=== PATIENT | male | born 1945 | race Caucasian/White ===

== ENCOUNTER 2018-02-06 10:06 | Emergency (ER) | payer MEDICARE, SELFPAY ==
[2018-02-06 10:07] VITALS: BP 182/92; PULSE 59; RESP 17; TEMP 36.7; O2SAT 96; BMI 29.0
--- NOTE | 2018-02-06 10:23 | RAD_ITS ---
STUDY: X-RAY - LUMBAR SPINE REASON FOR EXAM: Male, 72 years old. Low back pain. TECHNIQUE: 3 view(s) of the lumbar spine were obtained. COMPARISON: None FINDINGS: There is straightening of the normal lumbar lordosis. There is a mild dextroscoliosis of the lumbar spine. There is a normal alignment of the vertebrae. There is multilevel endplate spondylosis of the lumbar vertebrae. There is multi-level degenerative disc disease with multi-level disc space narrowing. There is evidence of a 7.1 cm x 0.5 cm lytic lesion in the superior aspect of the left iliac bone with sclerosis of facets inferior aspect. This may be related to prior surgical intervention and trauma. Clinical correlation is recommended. RAD/Lumbar Spine 2 or 3 Views IMPRESSION: Degenerative changes of the spine, as detailed above. Mild dextroscoliosis. Deformity of the left iliac bone as described most likely similar to prior trauma. Electronically Signed: Sanjiv Meraz MD at 10:55 EDT Tel [phone], Service support ,
--- NOTE | 2018-02-06 11:17 | ED.VISSUMM ---
- ER Visit Summary Date of Service: 02/06/18 Chief Complaint: Back pain History of Present Illness: The patient is a 72 M with no primary care physician. He reports that he has lower back pain began 2-3 weeks ago. Reports it is a constant aching pain that is sharp at times. It is worsened by twisting or rolling over in bed. States is relieved by standing up straight, and heat. He denies any radiation to his legs. No numbness or weakness in his legs. No problems with his bowels or his bladder. No groin numbness. No recent trauma. No fall, MVA, or change in activity. She has no red flags. He denies any fever, chills, abdominal pain, chest pain, IV drug abuse. Physical Examination: Vitals: Stable. Afebrile. General: A&O x 3. NAD. Cardiovascular exam: Regular rate and rhythm, no murmur, rub or gallop. Respiratory exam: Clear to auscultation bilaterally. No wheezes or stridor. Abdominal exam: Soft, nontender, nondistended, normal bowel sounds. No peritoneal signs. Back: Lumbar spine is nontender. Negative straight leg bilaterally. 5/5 DF, PF, EHL bilaterally. Normal sensation to light touch throughout. Extremity: No clubbing, cyanosis, or edema. Test Results: X-ray shows degenerative changes, but no fracture. Emergency Department Course and Treatment: Patient refused pain medications and states that he does not take any medication for pain. Treatment Plan: I suggested the patient that he needs to establish primary care physician for further evaluation of this and for his overall health. He will be discharged instructions follow-up Dr. Méndez as soon as possible. He refused pain medications for home. Disposition: To home in improved and stable condition. Impression: 1. Back pain. This note was generated with [employer] dictation software. It may contain incorrect words, spelling, and punctuation that were not noted in review of the chart prior to signing ED Disposition - Plan for ED Patient: Chief Complaint: Back Instructions: ED Neck Back Pain General Referrals: Elvin Méndez MD [STAFF PHYSICIAN] - As soon as possible
[2018-02-06 12:12] VITALS: BP 182/105; PULSE 61; RESP 17; O2SAT 97
== END 2018-02-06 12:14 | disposition home or self-care (01) ==
PROVIDERS: Emergency Provider Emergency Medicine
DX: M54.9 Dorsalgia, unspecified (principal); I25.10 Atherosclerotic heart disease of native coronary artery without angina pectoris; I10 Essential (primary) hypertension; Z79.82 Long term (current) use of aspirin; Z79.899 Other long term (current) drug therapy; Z87.442 Personal history of urinary calculi
CPT/HCPCS: 72100; 99282

== ENCOUNTER → 2018-03-04 10:29 | Outpatient (CLI) | payer MEDICARE, SELFPAY ==
[2018-03-04 11:38] LABS: AST(SGOT) 42 U/L (15-37); Alanine Aminotransfer ALT/SGPT 68 U/L (16-61); Alkaline Phosphatase 102 U/L (45-117); Bilirubin, Direct 0.15 mg/dL (0.00-0.30); Cholesterol 168 mg/dL (200); Globulin 3.4 g/dL (2.2-4.2); High Density Lipoprotein 31 mg/dL; Protein, Total 7.4 g/dL (6.4-8.2); Triglycerides 164 mg/dL; Very Low Density Lipoprotein 33 mg/dL (5-40)
== END ==
PROVIDERS: Visit Provider Internal Medicine Cardiovascular Disease
DX: E78.5 Hyperlipidemia, unspecified (principal); Z79.899 Other long term (current) drug therapy
CPT/HCPCS: 36415; 80061; 80076

== ENCOUNTER 2018-07-23 09:17 | Inpatient (IN) | payer MEDICARE, SELFPAY ==
[2018-07-11 15:02] VITALS: BP 175/89; PULSE 68; RESP 16; TEMP 37.2; O2SAT 95; BMI 29.3
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
[2018-07-11 16:24] LABS: Hemoglobin A1c 6.8 % (4.2-6.3)
--- NOTE | 2018-07-18 11:04 | CASEMGMT ---
Call placed to patient to discuss discharge needs after upcoming surgery. Patient's plan is to return home, has Eliza to help, per patient Eliza used to be a nurse and is a good friend. Patient does not think that outpatient therapy is set up yet, thinks that he was told therapy would be about 10 days after surgery. Eliza is going to assist with transportation to/from therapy appointments. There is a ramp into the house but patient states he stays in the camper most of the time. There are 1-2 steps into the camper. There is a walk-in shower and a shower seat. No toilet riser. Patient has a walker, but not a very good one, would like a fold up walker. Encouraged patient to check walker prior to coming in for surgery and also to see if therapy is set up. Patient stated he wasn't sure what time to arrive on surgery day, explained that surgery scheduling would call the day before with an arrival time and if he didn't hear from scheduling by ~4pm, to call [facility] and ask for the program scheduler.
[2018-07-23] VITALS (11 sets, daily range): BP systolic 124–180; BP diastolic 63–93; PULSE 54–94; RESP 16–18; TEMP 36.1–36.6; O2SAT 94–99; BMI 29.3
[2018-07-23 10:01] LABS: Bedside Glucose 142 mg/dL (70-110)
[2018-07-23] MEDS: Acetaminophen 500 MG Tablet 1000 MG PO ×3 (10:02→21:00)
[2018-07-23] MEDS: oxyCODONE HCl Cr 10 MG Tablet PO (10:02)
[2018-07-23] MEDS: Celecoxib 200 MG Capsule 400 MG PO (10:03)
[2018-07-23] MEDS: Cefazolin 2 GM in 0.9% Normal Saline 100 ML IV (10:22)
--- NOTE | 2018-07-23 10:39 | PCM.OPRPT ---
Report of Operation Date of Procedure: 07/23/18 Pre-Operative Diagnosis: Left knee primary osteoarthritis. Left knee medial tibial plateau nonunion Post-Operative Diagnosis: Left knee primary osteoarthritis. Left knee medial tibial plateau nonunion Surgery/Procedure Performed:: Left total knee replacement Description of Surgical Findings:: Stable knee with good patella tracking. Due to the nonunion there was a medial tibial defect required a 10 mm medial augment mental retardation aide: Grace Castaneda Anesthesiologist: Landon Small Special Medications: 2 g Ancef, 1 g TXA at incision, 1 g TXA closure, 10 mg Decadron, joint cocktail (5 mg Duramorph, 30 mL of 0.5% Ropivicaine, 1000 units of epinephrine, 30 mg of Toradol) Specimen's removed: Bony cuts Estimated Blood Loss (mL): 75 Fluids Replaced: 1900 milliliters crystalloid Description of Procedure: Implants used: 1. Alison size 5 triathlon posterior stabilized left distal femoral component 2. Alison size 4 universal tibial baseplate, 10 mm medial augment, 100 mm x 12 mm stem cemented 3. Alison X3 9 mm pS polyethylene 4. De Graff X3 35 mm asymmetric patella Brief history operative indications: 73-year-old M with history of left knee osteoarthritis with radiographic findings with loss of joint space, osteophyte formation and subchondral sclerosis and medial tibial plateau nonunion. Failed conservative measures as mentioned in the H&P. Discussion of total knee arthroplasty as well as risk and benefits were discussed the patient including but not limited to blood loss, DVTs, PEs, neurovascular damage, general risk of anesthesia including loss of life, and stiffness or instability were discussed with patient. Patient demonstrated understanding and was able to sign informed consent. Procedure: On the date of procedure patient's left lower extremity was marked in the preoperative area. The patient was then taken back to the operating room where the patient was placed on the table in the supine position. All bony prominences were identified a well-padded. Anesthesia assumed control of the C-spine and airway and remained controlled throughout the remainder of the procedure. A tourniquet was placed on the left upper thigh and the leg was prepped in a sterile fashion. The surgeon then scrubbed at this time .Upon reentering the room left lower extremity was draped in a standard orthopedic fashion. A timeout was then called and everyone agreed upon the side, the site, the procedure to be performed, patient's identity and antibiotics given. Esmarch bandage was used to exsanguinate the extremity and the tourniquet was placed up to 250 mmHg with the knee in flexion. A midline skin incision was made and sharp dissection was taken down through skin subcutaneous tissue and fat. The standard medial parapatellar incision was made and the patella was subluxed laterally. The standard deep MCL release was done and the fat pad was resected. Next our attention was directed to the femur. Navigation pins were placed, navigation was registered. The distal femoral cutting block was pinned into place and 10 mm of distal femur resection was completed. The distal femoral cut was verified with navigation. The knee was then placed in deep flexion in the standard Alvos Therapeutic sizing guide was used to place the femoral component in 3? external rotation based on the posterior condyles. A size 5 4-in-1 cutting block was selected and pinned into place. The anterior cut was then made and checked for notching. The subsequent anterior chamfer cuts, posterior condylar cuts and posterior chamfer cuts were made while ensuring the MCL and LCL were protected. Our attention was then turned to the tibia where initial exposure of the tibia was difficult secondary to posterior medial scar tissue. Careful attention was paid to the posterior medial knee and the posterior medial tibia and posterior tibia were carefully released in order to maintain the integrity of the MCL. The extra medullary tibial cutting guide was placed making a perpendicular cut to the chemical axis. 2 Millimeters were removed from the low side which was medially. After this we made a 5 mm augmented cut. Once this was complete we noted that we had not got to the depth of the bony defect. We made an additional 5 mm for a total of 10 mm augment cut. After this was performed visualization was still difficult secondary to all the skin excessive scar tissue in the posterior medial knee. Posterior medial bone was carefully debrided in order to maintain a good soft tissue sleeve and the integrity of the MCL. A size 4 tibial base plate was selected. the knee was flexed to 90 degrees and the soft tissues and posterior osteophytes were removed from the joint. 40 cc of the periarticular injection was injected into the posterior medial corner of the joint. The appropriate trials were then placed on the femur and tibia. A trial polyethylene was trialed to ensure proper balancing and stability of the knee. Patella tracking, was then verified and corrected appropriately as needed. The appropriate tibial internal rotation was then marked with a bovie. Our attention was then directed to the patella. The patella was everted and a flat resection was made. The lug holes were drilled and the patella trial was placed. Patellar tracking was checked and deemed appropriate. Once we were happy lug holes were drilled for the femur and trial components were removed. the tibia was subluxed and pinned into place and the keel was punched and the canal was reamed for the 12 mm x 100 mm tibial stem. Final components were verified and opened, and cement was mixed in a vacuum. Alvos Therapeutic Simplex cement was used. The wound was copiously irrigated with normal saline. When the cement was ready the components were cemented into place starting with the tibia, femur and finally the patella. The trial poly component was placed and the knee was placed in full extension. All excess cement was removed in the process. Once the cement had cured the tracking, alignment and balance were verified and a size 9 mm polyethylene component was placed. Once the final components were placed the wound was copiously irrigated with normal saline solution and the periarticular injection was given. The wound was closed in a layer mcneil fashion using #1 vicryl interrupted sutures for the arthrotomy, 2-0 interrupted Vicryl suture for the subcuticular layer and socorro for final skin closure. A sterile compressive dressing was then placed. The patient was then awakened from anesthesia, transferred to the [facility] and transferred to the PACU for recovery. Post op plan DVT ppx: ASA 81mg, thigh high compression stockings Follow up: in office in 2 weeks for wound check PT: to start POD #0 at hospital, outpatient PT should be arranged. Modifier 22: Due to this patient's previous medial tibial plateau nonunion this case did take [place]. [place] [address] is 50 minutes today's tourniquet time was 72 minutes making it 40% longer than a average total knee replacement. This should be considered request for a modifier 22. The parts of the case took longer were exposed and the tibia and prepping the tibia for the tibial defect from the previous nonunion also debriding posterior medial bone after making the tibial cut. All this took excessive time in order to appropriately protect and preserve medial collateral ligament ensure an appropriate outcome for the patient. Grafts/Implants Used: Alvos Therapeutic triathlon posterior stabilized total knee - Complications None - Admit VTE Documentation VTE Present on Admission: No VTE Mechan Device Prophylaxis: SCD's, Thigh High MAHENDRA Hose VTE Pharm Prophylaxis ordered?: Yes
[2018-07-23] MEDS: Lactated Ringers 1,000 ML 999 ML IV (13:04)
[2018-07-23] MEDS: Scopolamine 1mg/72hr Patch 1 PATCH TD (13:04)
[2018-07-23 13:11] LABS: Bedside Glucose 193 mg/dL (70-110)
[2018-07-23] MEDS: Lactated Ringers 1,000 ML 125 ML IV ×2 (13:40→19:10)
[2018-07-23] MEDS: Glucerna Shake 120 ML LIQUID PO ×2 (14:30→16:29)
[2018-07-23] MEDS: Insulin Lispro 100 UNIT/ML INSULN.PEN SC ×2 (16:28→21:00)
[2018-07-23 16:30] LABS: Bedside Glucose 257 mg/dL (70-110)
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
[2018-07-23] MEDS: Cefazolin 1 GM/50 ML BAG IV (18:14)
[2018-07-23] MEDS: Meloxicam 7.5 MG Tablet PO (21:00)
[2018-07-23] MEDS: Senna/Docusate Sodium 1 Tablet 2 TABLET PO (21:00)
[2018-07-23] MEDS: Aspirin 81 MG TAB.CHEW PO (21:00)
[2018-07-23 22:40] LABS: Bedside Glucose 271 mg/dL (70-110)
[2018-07-24 02:45] VITALS: BP 125/61; PULSE 63; RESP 16; TEMP 36.7; O2SAT 97
[2018-07-24] MEDS: Cefazolin 1 GM/50 ML BAG IV (02:45)
[2018-07-24] MEDS: Acetaminophen 500 MG Tablet 1000 MG PO (05:18)
[2018-07-24 06:21] LABS: Hematocrit 36.1 % (40-54); Hemoglobin 12.4 g/dl (13.0-16.5); Mean Corp Hgb Conc 34.3 g/gl (32-36); Mean Corpuscular Hgb 31.5 pg (27.0-32.0); Mean Corpuscular Volume 91.6 fL (80-94); Mean Platelet Vol. 11.5 fl (6.2-12.0); Platelet Count 148 K/mm3 (150-450); RBC Distribution Width CV 13.1 % (11.6-14.6); RBC Distribution Width SD 43.8 fl (35.1-43.9); Red Blood Count 3.94 M/mm3 (4.6-6.2); White Blood Count 12.5 K/mm3 (4.4-11.0)
[2018-07-24 06:29] LABS: Scan Indicated on CBC? Y/N NO
[2018-07-24 06:33] LABS: Anion Gap 11 (5-15); BUN 18 mg/dL (7-18); BUN/Creat Ratio 15.9 RATIO (10-20); Calcium,Total 8.4 mg/dL (8.5-10.1); Chloride 107 mmol/L (98-107); Creatinine, Serum 1.13 mg/dL (0.70-1.30); EST Glomerular Filtration Rate 68 mL/min (>60); Est Glom Filt Rate - Afr Amer 82 mL/min (>60); Estimated Creatinine Clearance 55.25 ml/min; Glucose 211 mg/dL (74-106); Potassium 4.1 mmol/L (3.5-5.1); Sodium Level 142 mmol/L (136-145)
--- NOTE | 2018-07-24 06:36 | PCM.PN.ORT ---
Subjective: Patient is doing well. Reports minimal pain. Has been taking Tylenol for pain medications. No chest pain or shortness of breath. No calf pain. No acute events overnight. Anticipates discharge today. Objective: Postop radiographs reveal stable well aligned left total knee replacement. - Physical Exam General: Alert, Oriented x3, Cooperative Extremities: - - Left lower extremity: Dressing is clean dry and intact Sensations intact to light touch saphenous, sural, superficial peroneal, deep peroneal, and tibial distributions Motors intact EHL, DF, PF calves are soft and supple Vital Signs Temp Pulse Resp BP Pulse Ox 98.1 F 63 16 125/61 H 97 07/24/18 02:45 07/24/18 02:45 07/24/18 02:45 07/24/18 02:45 07/24/18 02:45 Oxygen Delivery Method Room Air Weight: 187 lb 9.814 oz Body Mass Index (BMI) 29.3 Finger Stick Blood Glucose 193 Intake and Output for Last 24 Hours 07/22/18 07/23/18 07/24/18 23:59 23:59 23:59 Intake Total 5167 / 5167 433 / 433 Output Total 500 / 500 400 / 400 Balance 4667 / 4667 33 / 33 Laboratory Tests Past 24 Hrs 07/24/18 07/24/18 05:40 05:40 WBC 12.5 H RBC 3.94 L Hgb 12.4 L Hct 36.1 L MCV 91.6 MCH 31.5 MCHC 34.3 RDW 13.1 RDW Differential 43.8 Plt Count 148 L MPV 11.5 Sodium 142 Potassium 4.1 Chloride 107 Carbon Dioxide 24.0 Anion Gap 11 BUN 18 Creatinine 1.13 Estim Creat Clear Calc 55.25 Est GFR (MDRD) Af Amer 82 Est GFR (MDRD) Non-Af 68 BUN/Creatinine Ratio 15.9 Glucose 211 H Calcium 8.4 L POC Glucose 07/23/18 07/23/18 07/23/18 20:56 16:16 13:05 POC Glucose 271 H 257 H 193 H 07/23/18 09:48 POC Glucose 142 H Medical Necessity - Tobacco Use Smoking Status: Former smoker Assessment/Plan All Active Problems (Last Updated 11/01/17 @ 11:18 by Evelyn Betancur) S/P wrist surgery (Resolved) History of left heart catheterization (Acute) Postop day 1 left total knee replacement 1. DVT prophylaxis: 81 mg aspirin twice daily for 4 weeks 2. Pain control: Patient currently doing well on Mobic and Tylenol. Discussed discharge with narcotics. Patient will have narcotics a safety net as block wears off. Instructed to use narcotics only as needed. 3. Physical therapy: Weightbearing as tolerated activity as tolerated, range of motion as tolerated. 4. Medical management: Appreciate medical management on this patient. Patient appears medically stable. 5. Disposition: We will plan for discharge today to home with outpatient physical therapy. MARIELLA [facility] Office:
--- NOTE | 2018-07-24 06:39 | PCM.DC.TKR ---
Discharge Diet: No Restrictions Discharge Activity: May Not Drive May shower in (days): 0 May resume sexual activity in: 1-2 weeks Ice area for (Minutes): 20 - every hour while awake. Weight Bearing Status: Weight bearing as tolerated Elevate: Operative Extremity Additional Activity Instructions:: Wear elastic stockings for 2 weeks after your surgery. Call your doctor if your incision/area has: Continuous Slow Oozing, Sudden Increased Bleeding, Increased Pain/ Swelling, Increased Redness, Foul Smelling Discharge Call your doctor if you observe: Fever of 101 or Higher, Coldness, Increased Pain, Numbness or Tingling, Change in Color, Calf discomfort, Uncontrolled pain Remove Dressing in (days):: 4 - 07/28/2018, If incision is clean dry and intact may leave the wound open to air and continue showering. If there is continued drainage continue daily dry dressing changes and keep incision clean dry and intact until there is no drainage. Allergies/Adverse Reactions: Allergies No Known Allergies Allergy (Verified 07/11/18 15:02) Medications to take at Discharge aspirin 81 mg tablet,delayed release 81 mg PO QDAY 11/01/17 lisinopril 5 mg tablet 5 mg PO QDAY tab 03/04/18 Metformin HCl 500 mg PO DAILY 07/11/18 Metoprolol Succinate [Toprol Xl] 12.5 mg PO QDAY 07/11/18 Primary Care Physician: Care Physician,No Primary [Primary Care Provider] - Test Results: Test results from this visit will be discussed in further detail at your follow-up appointment, if applicable. Please Follow Up With: Eb Otto PA-C When: 2 weeks, as noted in dc sheet
[2018-07-24] MEDS: Insulin Lispro 100 UNIT/ML INSULN.PEN SC ×2 (06:51→11:26)
[2018-07-24 06:56] LABS: Bedside Glucose 209 mg/dL (70-110)
[2018-07-24 07:30] VITALS: BP 158/71; PULSE 65; RESP 18; TEMP 36.9; O2SAT 96
[2018-07-24] MEDS: Famotidine 20 MG Tablet PO (07:36)
[2018-07-24] MEDS: Meloxicam 7.5 MG Tablet PO (07:36)
[2018-07-24] MEDS: Aspirin 81 MG TAB.CHEW PO (07:36)
[2018-07-24 07:37] VITALS: PULSE 65
[2018-07-24] MEDS: Metoprolol(XL)Succ 25 MG Tablet 12.5 MG PO (07:37)
--- NOTE | 2018-07-24 10:40 | PCM.PN.HOSP ---
Subjective: Patient was seen and examined. Feels well. Denied any pain at the time of being seen. Denies any fever or chills or chest pain or dizziness. He is been discharged by the orthopedic team. Objective: Physical exam: General: Alert, Oriented x3, Cooperative, No apparent distress HEENT: Atraumatic, EOMI, Normocephalic Oral: Moist Mucosa Neck: Supple, No JVD Lungs: Clear to auscultation, Normal air movement, No rhonchi, No wheeze, No rales Cardiovascular: Regular rate, Regular Rhythm, Normal S1, Normal S2, No murmurs Abdomen: Soft, Non Tender, Non-Distended, No Hepato-splenomegaly Extremities: - - Dressing on left knee CDI Neurological: Neuro grossly intact, Sensory exam intact to light touch and pain Psych/Mental Status: Normal Affect, Appropriate Vitals/I&O's: Vital Signs Temp Pulse Resp BP Pulse Ox 98.5 F 65 18 158/71 H 96 07/24/18 07:30 07/24/18 07:37 07/24/18 07:30 07/24/18 07:30 07/24/18 07:30 Oxygen Delivery Method Room Air Weight: 85.1 kg Body Mass Index (BMI) 29.3 Finger Stick Blood Glucose 193 Intake and Output for Last 24 Hours 07/22/18 07/23/18 07/24/18 23:59 23:59 23:59 Intake Total 5167 / 5167 433 / 433 Output Total 500 / 500 400 / 400 Balance 4667 / 4667 33 / 33 Laboratory Results 07/23/18 13:05: POC Glucose 193 H 07/23/18 16:16: POC Glucose 257 H 07/23/18 20:56: POC Glucose 271 H 07/24/18 05:40: WBC 12.5 H, RBC 3.94 L, Hgb 12.4 L, Hct 36.1 L, MCV 91.6, MCH 31.5, MCHC 34.3, RDW 13.1, RDW Differential 43.8, Plt Count 148 L, MPV 11.5 07/24/18 05:40: Sodium 142, Potassium 4.1, Chloride 107, Carbon Dioxide 24.0, Anion Gap 11, BUN 18, Creatinine 1.13, Estim Creat Clear Calc 55.25, Est GFR (MDRD) Af Amer 82, Est GFR (MDRD) Non-Af 68, BUN/Creatinine Ratio 15.9, Glucose 211 H, Calcium 8.4 L 07/24/18 06:48: POC Glucose 209 H Current Medications Acetaminophen (Tylenol) 1,000 mg PO Q8 [facility] Last Admin: 07/24/18 05:18 Dose: 1,000 mg Aspirin (Aspirin, Baby) 81 mg PO BID [facility] Last Admin: 07/24/18 07:36 Dose: 81 mg Famotidine (Pepcid) 20 mg PO DAILY [facility] Last Admin: 07/24/18 07:36 Dose: 20 mg Lactated Ringer's () 1,000 mls @ 125 mls/hr IV .Q8H [facility] Last Admin: 07/24/18 02:45 Dose: Not Given Insulin Human Lispro (Humalog Kwikpen (Bkc)) 1 - 7 unit SC ACHS [facility] PRN Reason: Protocol Last Admin: 07/24/18 06:51 Dose: 2 units Ketorolac Tromethamine (Toradol) 15 mg IV Q6H PRN PRN PRN Reason: MILD-MOD PAIN (1-5/10) Meloxicam (Mobic) 7.5 mg PO BID [facility] Last Admin: 07/24/18 07:36 Dose: 7.5 mg Metoprolol Succinate (Toprol Xl (Beta Jaz)) 12.5 mg PO DAILY [facility] Last Admin: 07/24/18 07:37 Dose: 12.5 mg Morphine Sulfate () 2 - 4 mg IV Q2H PRN PRN PRN Reason: SEVERE PAIN (6-10/10) Nutritional Formula (Lactose Free) (Glucerna Shake) 120 ml PO TIDCM [facility] Last Admin: 07/24/18 07:35 Dose: Not Given Ondansetron HCl (Zofran) 4 mg IV Q8H PRN PRN PRN Reason: NAUSEA Oxycodone HCl (Oxyir) 5 - 10 mg PO Q4H PRN PRN PRN Reason: MOD-SEVERE PAIN (4-10/10) Promethazine HCl (Phenergan) 12.5 mg IM Q6H PRN PRN; Protocol PRN Reason: NAUSEA/VOMITING Senna/Docusate Sodium (Senokot-S, Fatoumata-Colace) 2 tablet PO BID [facility] Last Admin: 07/24/18 07:36 Dose: Not Given Sodium Chloride () 5 - 30 ml IV UD PRN PRN Reason: SALINE FLUSH Medical Necessity - Tobacco Use Smoking Status: Former smoker Assessment/Plan All Active Problems (Last Updated 11/01/17 @ 11:18 by Evelyn Betancur) S/P wrist surgery (Resolved) History of left heart catheterization (Acute) 1. POD #1, s/p left TKA, further pain and wound management by orthopedic team 2. Hypertension, initially uncontrolled, repeat blood pressure shows better controlled, continue on home regimen lisinopril and metoprolol 3. Type II DM, HgbA1c 6.8, blood sugars fairly uncontrolled, on metformin 4. CAD, not on aspirin 5. DVT prophylaxis -per orthopedics team Code Visit Inpatient E&M: 23056 Subs Hosp L2
--- NOTE | 2018-07-24 11:15 | CASEMGMT ---
MELISSA THIBODEAUX Face to Face with patient for initial transition planning/care coordination assessment. RN CM introduced self and role at [facility]. Patient sitting in chair, alert and oriented. Patient willing to participate in assessment and is able to answer all questions appropriately. Care providers, pharmacy, and demographics verified. Patient wishes to discharge home and is setup at [facility] for outpatient therapy. Patient states he has no further needs or concerns at this time. CM to follow for discharge planning needs that may arise. Disposition Plan: Patient to discharge home with outpatient therapy, family support, and follow-up plans in place. Melanie BAXTER, RN, CM
[2018-07-24 11:35] LABS: Bedside Glucose 179 mg/dL (70-110)
[2018-07-24 13:30] VITALS: BP 139/63; PULSE 81; RESP 18; TEMP 36.9; O2SAT 98
[2018-07-24 14:29] VITALS: BP 139/63; PULSE 81; RESP 18; TEMP 36.9; O2SAT 98
== END 2018-07-24 14:21 | disposition home or self-care (01) | DRG 470 ==
LOC: ACINP 09:18 → MS3 11:21
PROVIDERS: Anesthesiology; Admitting Provider Specialist; Visit Provider Internal Medicine
PROC: 0SRD0J9 Replacement of Left Knee Joint with Synthetic Substitute, Cemented, Open Approach (ICD-10-PCS; CPT 27447; principal; 2018-07-23 10:15)
DX: M17.12 Unilateral primary osteoarthritis, left knee (principal); S82.142A Displaced bicondylar fracture of left tibia, initial encounter for closed fracture; V29.9XXA Motorcycle rider (driver) (passenger) injured in unspecified traffic accident, initial encounter; I25.10 Atherosclerotic heart disease of native coronary artery without angina pectoris; I10 Essential (primary) hypertension; I25.2 Old myocardial infarction; Z95.5 Presence of coronary angioplasty implant and graft; Z79.84 Long term (current) use of oral hypoglycemic drugs; E11.9 Type 2 diabetes mellitus without complications
CPT/HCPCS: 36415; 73560; 80048; 82962; 83036; 85027; 87077; 87081; 93005; 97110; 97162; 97166; 97530; 97802; 99251; 99406; C1776; J7120; G0463

== ENCOUNTER 2020-07-05 19:47 | Emergency (ER) | payer MEDICARE, SELFPAY ==
[2020-07-05 19:48] VITALS: BP 168/96; PULSE 79; RESP 17; TEMP 36.3; O2SAT 96; BMI 28.7
[2020-07-05 21:00] LABS: Absolute Lymphocyte Count 1.65 X10^3/uL (0.83-4.51); Absolute Neutrophil Count 5.1 X10^3/uL (2.0-7.7); Basophil# 0.06 X10^3/uL; Basophil% 0.7 % (0-1); Eosinophil# 0.27 X10^3/uL; Eosinophils% 3.3 % (0-5); Hematocrit 39.4 % (40-54); Hemoglobin 13.7 g/dL (13.0-16.5); Lymphocyte # 1.65 X10^3/ul (4.0); Lymphocyte % 20.4 % (19-41); Mean Corp Hgb Conc 34.8 g/dL (32-36); Mean Corpuscular Hgb 31.9 pg (27.0-32.0); Mean Corpuscular Volume 91.8 fL (80-94); Mean Platelet Vol. 10.6 fl (6.2-12.0); Monocyte# 0.93 X10^3/uL; Monocyte% 11.5 % (0-10); NRBC Flagged by Analyzer 0 % (0-5); Neutrophil # 5.13 X10^3/uL (2.7-7.7); Neutrophil % 63.6 % (47-70); Platelet Count 187 K/mm3 (150-450); RBC Distribution Width CV 12.3 % (11.6-14.6); RBC Distribution Width SD 41.7 fl (35.1-43.9); Red Blood Count 4.29 M/mm3 (4.6-6.2); White Blood Count 8.1 K/mm3 (4.4-11.0)
[2020-07-05] MEDS: Doxycycline 100 MG CAPSULE PO (21:00)
[2020-07-05 21:16] LABS: Prothrombin Time (Protime)PT. 12.8 SECONDS (11.7-14.9)
[2020-07-05 21:17] LABS: ALB/GLOB Ratio 1.1 RATIO (0.9-2.4); AST(SGOT) 21 U/L (15-37); Alanine Aminotransfer ALT/SGPT 40 U/L (16-61); Albumin, Serum 3.6 g/dL (3.2-5.0); Alkaline Phosphatase 88 U/L (45-117); Anion Gap 4 (5-15); BUN 14 mg/dL (7-18); BUN/Creat Ratio 10.9 RATIO (10-20); Chloride 108 mmol/L (98-107); Creatinine, Serum 1.29 mg/dL (0.70-1.30); EST Glomerular Filtration Rate 58 mL/min (>60); Est Glom Filt Rate - Afr Amer 70 mL/min (>60); Estimated Creatinine Clearance 46.97 ml/min; Globulin 3.4 g/dL (2.2-4.2); Glucose 261 mg/dL (74-106); Partial Thromboplast Time 27.3 Seconds (24.1-36.2); Potassium 3.9 mmol/L (3.5-5.1); Sodium Level 141 mmol/L (136-145)
--- NOTE | 2020-07-05 21:37 | ED.VISSUMM ---
- ER Visit Summary Date of Service: 07/05/20 Chief Complaint: Abscess History of Present Illness: The patient is a [address] Nolasco. He reports he has an abscess in the right inguinal region that began 3 to 4 days ago. He denies pain. He reports that it is sore. Denies any constitutional symptoms. No fever, chills, nausea, or vomiting. Physical Examination: Vitals: Stable. Afebrile. General: Well-nourished and well-developed. Head: Normocephalic atraumatic. Neck: Supple, no lymphadenopathy. No JVD. Nontender. Cardiovascular: Regular rate and rhythm. No murmurs. Respiratory: No respiratory distress. Clear to auscultation bilaterally. Abdominal: Soft, nontender, nondistended, normal bowel sounds. No guarding, rebound, or peritoneal signs. Back: Nontender. Extremities: Nontender, no edema. Skin: Right inguinal region there is a 2 cm indurated area with central fluctuance that is spontaneously draining. Neurologic: Alert and oriented ?3. Cranial nerves II through XII are intact. Normal strength and sensation. Psych: Normal affect. Test Results: CBC shows hematocrit of 39.4 monocytes 12. Chem-7 shows a chloride of 108 and glucose 261. Coags are normal. Emergency Department Course and Treatment: Patient had an I&D performed he tolerated this well. He was given doxycycline p.o. Treatment Plan: Patient be discharged on doxycycline instructed to follow-up with Dr. Tracy in 2 days for a wound check. Return to the emergency department for any worsening symptoms. Disposition: To home in improved and stable condition. Impression: 1. Abscess right inguinal region. 2. I&D. 3. Rlw-yvzqffl-bspfyefqc diabetes mellitus. Procedure Note: Abscess was cleansed with chlorhexidine soap. Anesthetized with 1% lidocaine without epinephrine. An incision was made with an 11 scalpel blade. A moderate amount of pus was drained. Curved hemostats were used to break up loculations. The wound was copiously irrigated with normal saline. It was loosely packed with iodoform gauze. The patient tolerated it well. This note was generated with [employer] dictation software. It may contain incorrect words, spelling, and punctuation that were not noted in review of the chart prior to signing ED Disposition - Plan for ED Patient: Disposition: Home or Assisted Living Instructions: ED Abscess Incision And Drainage Prescriptions: Doxycycline 100 mg PO BID #14 cap Prescription Printed Referrals: Katie Tracy MD [STAFF PHYSICIAN] - 2 Days for wound check
[2020-07-05 22:08] VITALS: BP 161/91; PULSE 70; RESP 16; O2SAT 96
== END 2020-07-05 22:09 | disposition home or self-care (01) ==
LOC: ED 20:17
PROVIDERS: Emergency Provider Emergency Medicine; PCP Internal Medicine
DX: L02.214 Cutaneous abscess of groin (principal); E11.9 Type 2 diabetes mellitus without complications; I25.10 Atherosclerotic heart disease of native coronary artery without angina pectoris; I10 Essential (primary) hypertension; Z79.84 Long term (current) use of oral hypoglycemic drugs; Z79.82 Long term (current) use of aspirin; Z79.899 Other long term (current) drug therapy
CPT/HCPCS: 10060; 80053; 85025; 85610; 85730; 99283

== ENCOUNTER 2020-07-16 11:14 | Emergency (ER) | payer MEDICARE, SELFPAY ==
[2020-07-16 11:16] VITALS: BP 147/67; PULSE 60; RESP 17; TEMP 36.3; O2SAT 98; BMI 29.4
--- NOTE | 2020-07-16 11:27 | RAD_ITS ---
STUDY: X-RAY - RIGHT FEMUR REASON FOR STUDY: Male, 75 years old. FALL, POSTERIOR BRUISING TECHNIQUE: 4 view(s) of the femur. COMPARISON: None. FINDINGS: Normal visualized femur. Normal visualized soft tissue structure. Vascular calcifications. RAD/Femur Min 2 Views IMPRESSION: Normal x-ray examination of the femur. Electronically Signed: Hieu Villatoro DO at 12:30 EDT Tel [phone], Service support ,
--- NOTE | 2020-07-16 11:29 | ED.DCSUM_ITS ---
- ER Visit Summary Date of Service: 07/16/20 Chief Complaint: Right posterior thigh pain History of Present Illness: The patient is a 75 M who presents with pain in the right posterior thigh. He was walking in the [place] 4 days ago when he fell directly onto this area. He now has pain with walking. He takes a baby aspirin a day but has not taken anything else for pain. He denies any hip or knee pain. Denies any other injuries. Physical Examination: Vital signs reviewed. Right leg exam reveals tenderness in the posterior proximal upper leg area. No buttock tenderness but he has no hip or knee tenderness. There is ecchymosis on the posterior thigh overlying the hamstring muscle area. Distal pulses are intact. No swelling. No tenderness along the deep venous system Test Results: X-rays of the right femur area are negative Emergency Department Course and Treatment: The patient appears to have a muscle tear of the hamstring causing ecchymosis. He has full range of motion. He is able to ambulate on his own. He does not want any pain medications for home. He will use ice for pain. He is going to call his doctor for follow-up. Treatment Plan: [] Disposition: Discharge Impression: Right hamstring muscle tear This note was generated with [employer] dictation software. It may contain incorrect words, spelling, and punctuation that were not noted in review of the chart prior to signing ED Disposition - Plan for ED Patient: Disposition: Home or Assisted Living Instructions: ED SOFT TISSUE CONTUSION Referrals: Anahi Nolasco MD [Primary Care Provider] -
[2020-07-16 12:47] VITALS: BP 146/71; PULSE 62; RESP 15; O2SAT 98
== END 2020-07-16 12:48 | disposition home or self-care (01) ==
PROVIDERS: Emergency Provider Emergency Medicine; PCP Internal Medicine
DX: S76.911A Strain of unspecified muscles, fascia and tendons at thigh level, right thigh, initial encounter (principal); W19.XXXA Unspecified fall, initial encounter; Y93.01 Activity, walking, marching and hiking
CPT/HCPCS: 73552; 99282

== ENCOUNTER 2020-12-17 15:40 | Emergency (ER) | payer MEDICARE, SELFPAY ==
[2020-12-17 15:42] VITALS: BP 167/83; PULSE 87; RESP 16; TEMP 36.9; O2SAT 96; BMI 29.2
[2020-12-17 15:45] VITALS: BP 167/83; PULSE 87; RESP 16; TEMP 36.9; O2SAT 96
--- NOTE | 2020-12-17 16:07 | US_ITS ---
STUDY: SCROTUM ULTRASOUND REASON FOR EXAM: Male, 75 years old. swelling and pain bilateral testicles. TECHNIQUE: Ultrasound evaluation of the scrotum was performed with color Doppler and static peña-scale imaging. COMPARISON: None. FINDINGS: RIGHT TESTICLE INTRATESTICULAR: There is a normal size of the right testicle. The right testicle measures 4.9 x 3.3 x 3.0 cm. There is a homogenous echotexture. There is normal arterial and normal venous vascularity. There is no demonstrated right testicular mass or cyst. EXTRATESTICULAR: The epididymis is normal in size. The epididymis head measures 1.7 cm. There is normal vascularity of the epididymis. There is a well-defined cystic structure within the epididymis, without internal echoes, consistent with an epididymal cyst. There is a small hydrocele. There is no demonstrated varicocele. There is no demonstrated extratesticular mass or cyst. LEFT TESTICLE INTRATESTICULAR: There is a normal size of the left testicle. The left testicle measures 4.3 x 3.2 x 2.5 cm. There is a homogenous echotexture. There is normal arterial and normal venous vascularity. There is no demonstrated left testicular mass or cyst. EXTRATESTICULAR: The epididymis is normal in size. The epididymis head measures 1.3 cm. There is normal vascularity of the epididymis. There is a well-defined cystic structure within the epididymis, without internal echoes, consistent with an epididymal cyst. There is no demonstrated hydrocele. There are prominent extratesticular veins consistent with a varicocele. There is no demonstrated extratesticular mass or cyst. There is diffuse scrotal wall thickening and edema. US/Testicular with Arterial Flow IMPRESSION: 1. Normal bilateral testicles. 2. Diffuse scrotal edema or cellulitis. 3. Left varicocele. 4. Small right hydrocele. 5. Subcentimeter epididymal cysts. Electronically Signed: Chidi Lorenzana MD ([place]oks) at 17:51 EST , Service support ,
--- NOTE | 2020-12-17 16:33 | ED.VIS.GEN ---
History of Present Illness Chief Complaint: Abscess Informant: Patient, Family Narrative: 75-year-old male presenting for evaluation of a small abscess on his right forearm as well as what he believes is an abscess of the posterior scrotum. He states that the one on his arm is actually feeling better. His scrotum has been painful for about 4 days. He denies any trauma. He is not had any systemic signs such as fever or chills. Denies dysuria. - Past Medical History (1) Atrial fibrillation Status: Chronic (2) Diabetes mellitus Status: Chronic (3) HLD (hyperlipidemia) Status: Chronic (4) HTN (hypertension) Status: Chronic Past Medical History - Allergies and Home Meds Allergies/Adverse Reactions: Allergies No Known Allergies Allergy (Verified 07/05/20 19:47) Primary Care Physician: Anahi Nolasco MD [Primary Care Provider] - Prior records reviewed: Yes Past Medical History: - - Reviewed in problem list Surgical History: noncontributory Lives: Spouse/ Significant Other Smoking Status: Former smoker Alcohol: None Drugs: None Review of Systems General: Denies: Chills, Fever, Sweats Eyes: Denies: Visual changes - bilaterally, Diplopia ENT: Denies: Rhinorrhea, Sore throat Cardiovascular: Denies: Chest pain, Palpitations Respiratory: Denies: Dyspnea, Cough, Dyspnea on exertion Genitourinary: Denies: Dysuria, Hematuria, Frequency Musculoskeletal: Denies: Back pain, Extremity Pain Skin: Reports: Abscess - Right forearm abscess, - - Scrotal rash and swelling Neurological: Denies: Headache, Weakness Psych: Denies: Depression, Anxiety Physical Exam Vital Signs/Narrative: Vital Signs Temp Pulse Resp BP Pulse Ox 12/17/20 15:45 98.4 F 87 16 167/83 H 96 12/17/20 15:42 98.4 F 87 16 167/83 H 96 General: Well nourished, No Acute Distress Head: Normocephalic, Atraumatic Eyes: Perrl, EOMI Cardiovascular: Regular rate, Regular rhythm : - - Erythema and redness to the scrotum there is a firm area on the posterior aspect near the perineum. There is no drainage. Extremities: Nontender, No edema Skin: - - 1.5 cm abscess on right posterior forearm. No surrounding erythema or induration.. Negative for: Cyanosis, Diaphoresis Neurological: Alert, Oriented x3, Cranial nerves II-XII grossly intact Psychological: Normal affect, Normal Mood Diagnostic/Tx/Re-eval Clinical Impression(s) from Imaging Studies Testicular Ultrasound 12/17/20 16:07 IMPRESSION: 1. Normal bilateral testicles. 2. Diffuse scrotal edema or cellulitis. 3. Left varicocele. 4. Small right hydrocele. 5. Subcentimeter epididymal cysts. Electronically Signed: Chidi Lorenzana MD (Brooks) at 17:51 EST , Service support , Abdomen/Pelvis CT 12/17/20 18:13 IMPRESSION: 1. Scrotal edema as seen on ultrasound earlier today. 2. No acute inflammatory process or bowel obstruction. 3. Bilateral inguinal and umbilical fat-containing hernias with right-sided urinary bladder extending to the right hernia sac mouth. 4. No hydronephrosis. Electronically Signed: Chidi Lorenzana MD (Brooks) at 19:13 EST , Service support , Laboratory Data 12/17/20 12/17/20 12/17/20 16:30 18:25 18:25 WBC 10.9 RBC 4.31 L Hgb 13.7 Hct 40.2 MCV 93.3 MCH 31.8 MCHC 34.1 RDW Std Deviation 43.1 RDW Coeff of Holley 12.4 Plt Count 192 MPV 11.0 Immature Gran % (Auto) 0.300 Neut % (Auto) 72.3 H Lymph % (Auto) 14.7 L Kinney % (Auto) 11.4 H Eos % (Auto) 0.8 Baso % (Auto) 0.5 Absolute Neuts (auto) 7.9 H Absolute Lymphs (auto) 1.60 Nucleated RBC % 0 Sodium 140 Potassium 4.1 Chloride 106 Carbon Dioxide 29.0 Anion Gap 5 BUN 21 H Creatinine 0.99 Estim Creat Clear Calc 61.20 Est GFR (MDRD) Af Amer 94 Est GFR (MDRD) Non-Af 78 BUN/Creatinine Ratio 21.1 H Glucose 139 H Calcium 9.3 POC Glucose 165 H - Medical Decision Making 75-year-old male presenting with concern for abscess on right forearm and scrotum. On his right arm he did have a small abscess which was incised and drained. See procedure note. On examination he does have some tenderness to posterior aspect of his scrotum and there is thickening but I do not feel any fluctuance. He initially had an ultrasound which showed no abscess and showed that the skin was inflamed. Patient also had CT of the abdomen pelvis to make sure that it was not a Jaun's gangrene of the knee his diabetes and this is not evident. Patient's lab work showed no leukocytosis normal renal function. Given this I think the patient is okay to be discharged home on oral antibiotics. He was counseled on keeping the area clean and dry and monitoring for signs of worsening. If he gets worse he is to return to the ER. He will be started on clindamycin with first dose in the ED. Impression: 1. Abscess right forearm 2. Scrotal cellulitis Procedures Procedure(s): Right forearm abscess was cleaned with chlorhexidine. Wound was anesthetized with 2 cc of lidocaine without epinephrine. Good anesthesia was achieved. Wound was incised with 11 blade and expression of a small amount of purulent discharge. Wound was deloculated. Wound was cleaned with sterile saline. Dressing was applied. Tolerated procedure well. ED Disposition - Plan for ED Patient: Disposition: Home or Assisted Living Instructions: ED Abscess Incision And Drainage, ED Cellulitis Prescriptions: Clindamycin [Cleocin] 450 mg PO TID #90 cap Transmission Status: Received by [facility]/pharmacy #[id number] Referrals: Anahi Nolasco MD [Primary Care Provider] -
[2020-12-17 16:35] LABS: Bedside Glucose 165 mg/dL (70-110)
[2020-12-17] MEDS: Lidocaine 2% (20 ml mdv) 20 ML Vial INFILT (16:49)
[2020-12-17 17:41] VITALS: BP 128/70; PULSE 77; RESP 17; O2SAT 98
--- NOTE | 2020-12-17 18:13 | CT_ITS ---
STUDY: CT ABDOMEN AND PELVIS WITH CONTRAST REASON FOR EXAM: Male, 75 years old. SCROTAL SWELLING,INFECTION X 2 DAYS,HX:DIABETES,HTN RADIATION DOSAGE (If Supplied By Facility): CTDIvol = ( 14.37 ) mGy, DLP = ( 970.26 ) mGycm TECHNIQUE: Transaxial images were obtained from the dome of the diaphragm to the symphysis pubis without oral contrast. IV 100mL Isovue-370 was administered. Sagittal and coronal images were reconstructed. Individualized dose optimization techniques were used for this CT. COMPARISON: Scrotal ultrasound from earlier today. FINDINGS: Mild atelectasis or fibrotic scarring right lung base. Coronary artery stents are noted. Subcentimeter hypodense cystic lesions of the left hepatic lobe. Benign, incidental finding; no specific imaging workup recommended according to current ACR guidelines. Normal gallbladder and extrahepatic biliary system. There are multiple benign calcified granulomata of the spleen. Normal pancreas. Normal bilateral adrenal glands. Normal right kidney. Normal left kidney. Normal visualized stomach. Normal small intestine. There are multiple colonic diverticula consistent with diverticulosis. There is non-visualization of the appendix. There is diffuse atherosclerotic calcification of the abdominal aorta, without a demonstrated aneurysm. There is atherosclerosis of the bilateral renal arteries with mild stenosis. Normal inferior vena cava. Normal retroperitoneum. No bladder wall thickening. There are right larger than left inguinal hernias containing fat at the anterior right side of the urinary bladder extending into the right hernia mouth (image 47 series 601). Small periumbilical fat containing hernia noted. There are diffuse degenerative changes of the visualized lumbar spine. There is soft tissue edema involving the scrotum, inferior more than superior but no obvious focal fluid collection. There are surgical clips in the left inguinal region. Deformity of the left side of the pelvis compatible with old, healed fractures, stable. CT/Abdomen/Pelvis W IV Cont ONLY IMPRESSION: 1. Scrotal edema as seen on ultrasound earlier today. 2. No acute inflammatory process or bowel obstruction. 3. Bilateral inguinal and umbilical fat-containing hernias with right-sided urinary bladder extending to the right hernia sac mouth. 4. No hydronephrosis. Electronically Signed: Chidi Lorenzana MD ([place]) at 19:13 EST , Service support ,
[2020-12-17 18:55] LABS: Absolute Neutrophil Count 7.9 X10^3/uL (2.0-7.7); Basophil# 0.05 X10^3/uL; Basophil% 0.5 % (0-1); Eosinophil# 0.09 X10^3/uL; Eosinophils% 0.8 % (0-5); Hematocrit 40.2 % (40-54); Hemoglobin 13.7 g/dL (13.0-16.5); Lymphocyte % 14.7 % (19-41); Mean Corp Hgb Conc 34.1 g/dL (32-36); Mean Corpuscular Hgb 31.8 pg (27.0-32.0); Mean Corpuscular Volume 93.3 fL (80-94); Monocyte# 1.24 X10^3/uL; Monocyte% 11.4 % (0-10); NRBC Flagged by Analyzer 0 % (0-5); Neutrophil # 7.91 X10^3/uL (2.7-7.7); Neutrophil % 72.3 % (47-70); Platelet Count 192 K/mm3 (150-450); RBC Distribution Width CV 12.4 % (11.6-14.6); RBC Distribution Width SD 43.1 fl (35.1-43.9); Red Blood Count 4.31 M/mm3 (4.6-6.2); White Blood Count 10.9 K/mm3 (4.4-11.0)
[2020-12-17 18:56] LABS: Anion Gap 5 (5-15); BUN 21 mg/dL (7-18); BUN/Creat Ratio 21.1 RATIO (10-20); Calcium,Total 9.3 mg/dL (8.5-10.1); Chloride 106 mmol/L (98-107); Creatinine, Serum 0.99 mg/dL (0.70-1.30); EST Glomerular Filtration Rate 78 mL/min (>60); Est Glom Filt Rate - Afr Amer 94 mL/min (>60); Glucose 139 mg/dL (74-106); Potassium 4.1 mmol/L (3.5-5.1); Sodium Level 140 mmol/L (136-145)
[2020-12-17] MEDS: Clindamycin HCl 150 MG Capsule 450 MG PO (20:34)
[2020-12-17 20:36] VITALS: BP 128/70; PULSE 78; RESP 16; O2SAT 98
== END 2020-12-17 20:37 | disposition home or self-care (01) ==
PROVIDERS: Emergency Provider Student in an Organized Health Care Education/Training Program; PCP Internal Medicine
DX: L02.413 Cutaneous abscess of right upper limb (principal); N49.2 Inflammatory disorders of scrotum; I48.20 Chronic atrial fibrillation, unspecified; E11.9 Type 2 diabetes mellitus without complications; I10 Essential (primary) hypertension; E78.5 Hyperlipidemia, unspecified; Z79.84 Long term (current) use of oral hypoglycemic drugs; Z79.82 Long term (current) use of aspirin; Z79.899 Other long term (current) drug therapy; Z87.891 Personal history of nicotine dependence
CPT/HCPCS: 10060; 74177; 76870; 80048; 82962; 85025; 93976; 99284; Q9967; A4216

== ENCOUNTER 2021-10-19 14:15 | Emergency (ER) | payer MEDICARE, SELFPAY ==
[2021-10-19 14:15] VITALS: BP 220/103; PULSE 62; RESP 16; TEMP 37; O2SAT 97; BMI 29.7
[2021-10-19 16:20] VITALS: BP 194/107
[2021-10-19 16:42] VITALS: BP 195/78
--- NOTE | 2021-10-19 17:04 | EDS_ITS ---
HPI History of Present Illness Chief Complaint: Cellulitis Detail of Chief Complaint: Right forearm injury with pain and swelling Informant: patient Onset/Context/Timing Onset: Days Context: Sudden Onset Timing: Continuous Current Severity: Mild Maximum Severity: Moderate Narrative Narrative: 76-year-old male was hunting in [place] fell and injured his right forearm. This occurred around [facility] but they could not talk him to coming into the hospital till now. He says had more pain and swelling the last several days. He is right-hand dominant. He denies any other injuries. Prior similar symptoms: No Recent Illness/Hospitalization: No PFSH PFSH Medical History Atherosclerosis of [place] coronary artery of [place] heart without angina pectoris Atrial fibrillation Diabetes mellitus History of left heart catheterization HLD (hyperlipidemia) HTN (hypertension) longterm use of drug Myocardial infarction Non-rheumatic tricuspid valve insufficiency Home Medications metformin 500 mg PO DAILY 07/11/18 [History Last Taken Unknown] metoprolol succinate [Toprol XL] 25 mg PO QDAY 07/11/18 [History Last Taken 07/23/18 07:00] acetaminophen 1,000 mg PO Q8 #90 tab 07/24/18 [Rx Last Taken Unknown] aspirin 81 mg PO BID 30 Days #60 tab.chew 07/24/18 [Rx Last Taken Unknown] lisinopril 10 mg PO QDAY 12/17/20 [History Last Taken Unknown] Allergy/AdvReac Type Severity Reaction Status Date / Time No Known Allergies Allergy Verified 10/19/21 14:19 Family History Father CVA (cerebral vascular accident) Mother Congestive heart failure Surgical History History of PTCA Hx of right coronary artery stent placement S/P wrist surgery Thoracotomy and thoracic aorta repair (~1979) Social History Smoking Status: Never smoker alcohol intake: former substance use type: does not use caffeine: Yes Type: coffee Number of servings: 2 what type of physical activity do you participate in: none seatbelt use: always do you feel safe at home: Yes ROS ROS ED ROS Narrative Denies recent illness. Review of Systems ROS Unobtainable: Denies due to encephalopathy Constitutional Constitutional ED: Denies fever(s) Eyes Eyes: Denies change in vision ENT ENT ED: Denies ear pain Cardiovascular Cardiovascular: Denies chest pain Respiratory/Chest Respiratory/Chest: Denies dyspnea Gastrointestinal Gastrointestinal: Denies abdominal pain, diarrhea, nausea or vomiting Genitourinary Genitourinary ED: Denies dysuria Musculoskeletal Musculoskeletal: Denies myalgias Integumentary Denies rash Neurologic Neurologic: Denies headache(s) Endocrine Endocrinology: Denies polyuria Allergic/Immunologic Allergic/Immunologic ED: Denies urticaria EXAM Physical Exam Narrative Exam Narrative: 76 male no acute distress vital signs stable afebrile. Blood pressure is elevated 195/78. HEENT exam atraumatic. Pupils round react light. No facial trauma. No scalp trauma. Neck nontender. Lungs clear to auscultation. Chest wall nontender. Heart regular rate and rhythm. Abdomen soft nontender. Pelvic girdle intact. Moving all 4 extremities. Tenderness and swelling to his right wrist and right forearm on the ulnar side. No gross bony deformity. Decreased range of motion of his right wrist. Normal sensation in his hand and cap refill. Elbow and shoulder nontender. Both lower e xtremities and left upper extremity nontender. With normal range of motion. Neurologic exam normal. Back nontender. Const Vital Signs: 10/19/21 14:15 10/19/21 16:20 10/19/21 16:42 Temperature 98.6 F Temperature Source Temporal Pulse Rate 62 Respiratory Rate 16 Blood Pressure 220/103 H 194/107 H 195/78 H Blood Pressure Mean 142 136 117 Pulse Ox 97 Oxygen Delivery Method Room Air Positive well nourished and well developed; Negative for obese, cachectic, contractures or unkempt General Appearance ED: well developed and NAD; Negative for unkempt, cachectic, contractures, cyanotic or diaphoretic Nutritional Appearance: Negative for cachectic or obese HEENT Reports moist mucous membranes Negative for trauma or tenderness Eyes PERRL and EOMs intact bilaterally Neck no lymphadenopathy, supple and no JVD General: Negative for tenderness Chest Wall inspection of chest normal and palpation of chest normal Resp normal respiratory effort and clear to auscultation bilaterally Effort and Inspection: Negative for pain with movement Auscultation: Negative for rales, rhonchi or wheezes Cardio regular rate, regular rhythm, S1 normal heart sound, S2 normal heart sound and no murmurs GI normal to inspection, nondistended, normoactive bowel sounds, non-tender, non- distended and no masses Auscultation: normoactive bowel sounds Palpation: soft; Negative for tender or guarding Back/Spine no CVA tenderness General Back: Negative for CVA tenderness Extremity normal to inspection Extremity Narrative: Right forearm tenderness and swelling primarily of the wrist and distal ulna. Skin intact. General Extremety ED: Yes edema and tenderness General Extremity: edema Neuro oriented x3 Sensorium / Orientation: alert Motor Exam: strength 5/5 throughout Psych mental status grossly normal Appearance: Negative for unkempt Mood & Affect: Negative for depressed or tearful Skin no rashes or lesions noted MDM MDM MDM Narrative Medical decision making narrative: 76-year-old male fall about a week ago complaining of right forearm and wrist pain. X-rays being obtained. He did not anything for pain. Repeat exam no change. Discussed with patient went over x-rays with he and his family. Ice and elevate. Velcro wrist splint. Follow-up if not improving. Radiography Diagnostic Testing: Right forearm x-ray 2 views AP and lateral interpreted by myself I do not see any acute fracture or dislocation. Right wrist x-ray again soft tissue swelling but no acute fracture dislocation 3 views interpreted by myself. Discharge Plan Triage Chief Complaint: Cellulitis ED Provider: Reza Reyes Dx/Rx/DC Orders Clinical Impression: Fall, Sprain of wrist, right Instructions: ED Wrist Sprain Prescriptions: No Action metformin 500 MG tablet 500 mg PO DAILY RF: 0 metoprolol succinate [Toprol XL] 25 MG tablet extended release 24 hr 25 mg PO QDAY RF: 0 acetaminophen 500 MG tablet 1,000 mg PO Q8 Qty: 90 RF: 0 aspirin 81 MG tablet,chewable 81 mg PO BID 30 Days Qty: 60 RF: 0 lisinopril 5 MG tablet 10 mg PO QDAY RF: 0 Primary Care Provider: Anahi Nolasco Referrals: Jorge Hatfield MD [NON-STAFF] - 1 Week if not improving Anahi Nolasco MD [Primary Care Provider] - 1 Week if not improving Activity Restrictions/Additional Instructions: At this time I do not see any broken bones or dislocations on your film. This may just be a sprained wrist. Ice and elevate. Tylenol for pain. Limited Motrin for swelling. Velcro wrist splint on for comfort and immobilization. You can take an on and off. If this is not improving in a week have reevaluated sometimes a small break will show up on the first films. Disposition Disposition: Home, Self Care
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
[2021-10-19 18:09] VITALS: BP 178/94; PULSE 58; RESP 18; O2SAT 96
== END 2021-10-19 18:38 | disposition home or self-care (01) ==
PROVIDERS: Emergency Provider Emergency Medicine; PCP Internal Medicine
DX: S63.501A Unspecified sprain of right wrist, initial encounter (principal); W19.XXXA Unspecified fall, initial encounter; Y93.9 Activity, unspecified; Y92.9 Unspecified place or not applicable; Y99.9 Unspecified external cause status; I25.10 Atherosclerotic heart disease of native coronary artery without angina pectoris; I48.91 Unspecified atrial fibrillation; I36.1 Nonrheumatic tricuspid (valve) insufficiency; E11.9 Type 2 diabetes mellitus without complications; I10 Essential (primary) hypertension; E78.5 Hyperlipidemia, unspecified; Z79.84 Long term (current) use of oral hypoglycemic drugs; Z79.82 Long term (current) use of aspirin; Z79.899 Other long term (current) drug therapy; I25.2 Old myocardial infarction; Z95.5 Presence of coronary angioplasty implant and graft
CPT/HCPCS: 73090; 73110; 99283

== ENCOUNTER → 2023-08-19 | Outpatient (CLI) | payer MEDICARE, SELFPAY ==
--- NOTE | 2023-08-19 | LES_PTH ---
PATIENT: ASIM CARCAMO LOC: [facility] U#:[id number] AGE/SX: 78/M ROOM: RE08/19/[address]: Dr. Declan Vinson MD : 1945 BED: DIS: 08/19/2023 SPEC #: [id number] RECD: 08/19/23 15:14 STATUS: EZEQUIEL REBenny #: [id number] FARHAD: 08/19/23 00:[address]: Declan Vinson DEPT: SURGICAL PATHOLOGY RECD BY: Christina Larios ENTERED: 08/20/23 08:13 SP TYPE: Lesion OTHR DR: Dr. Anahi Nolasco MD Tissues: Skin of eyelid, NOS Procedures: Surgery Specimen Level III HEADER OPERATION: Left lower lid lesion excision PRE-OP DIAGNOSIS: Left lower lid lesion TISSUE SUBMITTED: Left lower lid lesion MICROSCOPIC DIAGNOSIS Left lower eyelid lesion, biopsy: Epidermal inclusion cyst. AM:floyd 08/21/2023 MICROSCOPIC DESCRIPTION Slides are reviewed. GROSS DESCRIPTION Received in fixative is one container labeled with the patient's name and designated left lower lid. The specimen consists of a piece of marks-white skin measuring 0.9 x 0.7 x 0.5 cm. The specimen is inked and reveals a cyst filled with marks-white cheesy material occupying the entire specimen. The entire specimen is submitted in one cassette. / SJ:rg 08/20/2023 TC:1 CPT: 41977
== END | disposition home or self-care (01) ==
LOC: LABSPEC 15:27
PROVIDERS: PCP Internal Medicine; Visit Provider Ophthalmology
DX: L72.0 Epidermal cyst (principal)
CPT/HCPCS: 88304; 88305

== ENCOUNTER 2025-09-13 04:40 | Observation (INO) | payer MEDICARE, SELFPAY ==
[2025-09-13 04:41] VITALS: BP 207/97
[2025-09-13 04:42] VITALS: PULSE 85; RESP 16; TEMP 36.5; O2SAT 100; BMI 28.7
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
[2025-09-13 05:15] LABS: Hematocrit 41.6 % (40-54); Hemoglobin 14.4 g/dL (13.0-16.5); Immature Granulocytes Count 0.050 X10^3/uL (0.0-0.0); Mean Corp Hgb Conc 34.6 g/dL (32-36); Mean Corpuscular Volume 90.8 fL (80-94); Mean Platelet Vol. 11.1 fl (6.2-12.0); NRBC Flagged by Analyzer 0 % (0-5); Platelet Count 187 K/mm3 (150-450); RBC Distribution Width CV 12.5 % (11.6-14.6); RBC Distribution Width SD 40.8 fl (35.1-43.9); Red Blood Count 4.58 M/mm3 (4.6-6.2); White Blood Count 10.2 K/mm3 (4.4-11.0)
--- NOTE | 2025-09-13 05:40 | CT_ITS ---
PROCEDURE: CT/CTA Chst, Abd, Pel W and/or WO
[2025-09-13 05:43] LABS: AST(SGOT) 35 U/L (<=37); Alanine Aminotransfer ALT/SGPT 39 U/L (<=46); Albumin, Serum 4.3 g/dL (3.4-4.8); Alkaline Phosphatase 86 U/L (40-129); Anion Gap 12 (5-15); BUN 15 mg/dL (4-19); BUN/Creat Ratio 12.9 RATIO (10-20); Bilirubin, Direct 0.22 mg/dL (0.00-0.30); Calcium,Total 9.8 mg/dL (7.6-11.0); Carbon Dioxide 24.0 mmol/L (21.0-32.0); Chloride 105 mmol/L (98-108); Estimated Creatinine Clearance 53.74 ml/min (50-250); Globulin 2.8 g/dL (2.2-4.2); Glucose 192 mg/dL (70-99); Lipase 44 U/L (13-75); Potassium 3.7 mmol/L (3.3-5.1)
[2025-09-13 05:45] LABS: Troponin T High Sensitivity 54 ng/L (<=22)
[2025-09-13 06:41] VITALS: BP 165/81; PULSE 50; RESP 15; O2SAT 99
[2025-09-13 07:17] LABS: Troponin T High Sens 2 HR 54 ng/L (<=22)
--- NOTE | 2025-09-13 07:31 | ECHOD_ITS ---
Reason For Study ECHO/Echo Complete
[2025-09-13 08:03] VITALS: BP 165/81; PULSE 50; RESP 15; TEMP 36.5; O2SAT 99
[2025-09-13 10:37] VITALS: BMI 28.0
[2025-09-13 10:38] VITALS: BP 161/84; PULSE 50; RESP 17; TEMP 36.4; O2SAT 100
--- NOTE | 2025-09-13 10:55 | NURSING ---
Patient's 3rd troponin drawn late due to patient at stress test.
[2025-09-13 11:15] LABS: Troponin T High Sens 4 HR 47 ng/L (<=22)
--- NOTE | 2025-09-13 11:20 | STRESSREP_ITS ---
Stress Test Report
--- NOTE | 2025-09-13 11:20 | STRESSREP ---
Stress Test Report Date: 09/13/2025 Procedure: Pharmacologic stress nuclear imaging study Indications: Chest pain Consent: Per the patient Procedure: The patient underwent pharmacologic (Regadenoson 0.4mg ) evaluation with a peak heart rate of 78 beats per minute (55%predicted maximal heart rate) and a peak blood pressure of 182/84 mmHg. The baseline ECG demonstrated sinus rhythm with nonspecific ST-T wave changes. The peak pharmacologic ECG was nondiagnostic secondary to baseline abnormality. There were no cardiac dysrhythmias pretest, during pharmacologic infusion, or recovery. There was no complaint of chest discomfort during pharmacologic infusion or recovery. The patient was injected with 12.0 millicuries of technetium 99m Cardiolite and subsequently rest SPECT Cardiolite nuclear imaging was obtained in the horizontal long, vertical long, and short axis views. The patient underwent pharmacologic (Regadenoson) evaluation. The patient was injected with 33.1 millicuries of technetium 99m Cardiolite and subsequently stress SPECT Cardiolite nuclear imaging was obtained in the horizontal long, vertical long, and short axis views. A gated Cardiolite study at peak stress was obtained. The examination was stopped secondary to completion of protocol. Rest and stress SPECT Cardiolite nuclear imaging status post realignment, normalization, and attenuation correction demonstrate moderate-sized fixed perfusion defect of the inferior wall suggestive of prior infarct. No significant doris-infarct ischemia noted. There is end systolic thickening and brightening. Inferior hypokinesis noted on gated images. The reported LVEF is 52%. Impression: 1. Pharmacologic (Regadenoson) evaluation 2. Peak pharmacologic ECG nondiagnostic secondary to baseline abnormality. 3. There were no cardiac dysrhythmias pretest, during pharmacologic infusion, or recovery. 5. 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 6. The gated Cardiolite study reports an LVEF of 52%. This note was generated with [employer] software. It may contain incorrect words, spelling, and punctuation that were not noted in checking the note before signing.
--- NOTE | 2025-09-13 15:11 | DCINST_ITS ---
Discharge Instructions
--- NOTE | 2025-09-13 15:11 | PCM.DC ---
Discharge Instructions DC O2, CPAP, BIPAP needs Home O2 Discharge instructions: No Dressing / Incision Discharge Activity: Return to Normal Activity Weight Bearing Status: Full weight bearing Follow Up Care Test Results: Test results from this visit will be discussed in further detail at your follow-up appointment, if applicable. Discharge Plan Admission Admit Date/Time: 09/13/25 07:25 Primary Reason for Your Visit: Musculoskeletal chest pain Attending Provider: Aman Griffin Primary Care Provider: Anahi Nolasco Discharge Orders/Prescriptions Prescriptions: Continued metformin 500 MG tablet 1,000 mg PO DAILY metoprolol succinate [Toprol XL] 25 MG tablet extended release 24 hr 25 mg PO QDAY Rx Instructions: only takes 1/2 tab daily lisinopril 5 MG tablet 10 mg PO QDAY aspirin 81 MG tablet,chewable 81 mg PO .mahamedlly Referrals / Follow Up: Anahi Nolasco MD [Primary Care Provider, Internal Medicine] - See Referral Note Referral Note: In 2 weeks Disposition Disposition (needs filled in before D/C Order can be placed): Home, Self Care
--- NOTE | 2025-09-13 15:13 | PCM.DC.SUM ---
Providers Date of Admission: 09/13/25 Date of Discharge: 09/13/25 Primary Care Physician: Dr. Anahi Nolasco MD Reason For Visit: CHEST PAIN Diagnosis Discharge Diagnosis (1) Chest pain: Status: Acute Code(s): R07.9 - Chest pain, unspecified Plan 1. Musculoskeletal chest pain #2 coronary artery disease #3 essential hypertension #4 hyperlipidemia #5 noncompliance with medical treatment as outpatient Medications at Discharge Home Medications metformin 500 mg tablet 1,000 mg PO DAILY DIABETIC 07/11/18 metoprolol succinate 25 mg tablet,extended release 24 hr (Toprol XL) 25 mg PO QDAY BP 07/11/18 lisinopril 5 mg tablet 10 mg PO QDAY BP 12/17/20 aspirin 81 mg chewable tablet 81 mg PO .dailly 09/13/25 Hospital Course Operations None Procedures 2-D Echocardiogram and Nuclear stress test Summary of Care Provided Minutes Spent on Discharge: 31 Hospital Course: This 80-year-old white male was seen in the emergency room at [facility] with complaints of intermittent chest pain which he described as grabbing and over his midsternal area and radiating to the left. Patient denied any radiation into the jaw or down the arm, he has a past history of coronary artery disease with stent placement many years ago. Workup in the emergency room included labs which showed an elevated troponin at 54 and again 2 hours later at 54, EKG showed no evidence of acute ischemic changes, CBC was unremarkable, chemistry profile was unremarkable. CTA of the chest abdomen and pelvis showed no acute abnormality, there were signs of chronic changes over the patient's left rib area and pelvis. Patient was placed in observation status on PCU, he underwent a pharmacological nuclear stress test which was negative for acute reversible ischemia. Patient had an echocardiogram which showed a normal EF and no significant valvular heart disease. On 09/13/2025, patient was seen and examined: On examination he appeared in good health and spirits. Vital signs as documented. Skin warm and dry and without overt rashes. Neck without JVD, neck was supple, trachea midline, thyroid was normal. Lungs clear bilaterally, normal air movement was noted. Heart exam notable for regular rhythm, normal sounds and absence of murmurs, rubs or gallops. Abdomen unremarkable and without evidence of organomegaly, masses, or abdominal aortic enlargement. Bowel sounds are present, abdomen is not distended. Extremities nonedematous, no cyanosis was noted, no clubbing was noted. Neuro: Cranial nerves II through XII are grossly intact, no focal motor deficits were noted, sensation to light touch and pinprick intact, motor exam 5/5 throughout. Psych: Patient is alert and oriented x3, he does not appear anxious or depressed, he does not appear agitated. Patient was felt to be stable for discharge on 09/13/2025. He was cautioned to take his home medications as directed, his significant other had told me that he was not faithful in taking his home medications as prescribed. Weight / BMI Weight Weight: 81.4 kg Body Mass Index (BMI) 28.0 ABG / Lab / Microbiology Data 09/13/25 04:50 09/13/25 04:50 Laboratory: Laboratory Results - last 24 hr 09/13/25 04:50: WBC 10.2, RBC 4.58 L, Hgb 14.4, Hct 41.6, MCV 90.8, MCH 31.4, MCHC 34.6, RDW Std Deviation 40.8, RDW Coeff of [place] 12.5, Plt Count 187, MPV 11.1, Immature Gran % (Auto) 0.500, Neut % (Auto) 58.7, Lymph % (Auto) 27.7, [place] % (Auto) 9.9, Eos % (Auto) 2.5, Baso % (Auto) 0.7, Absolute Neuts (auto) 6.0, Absolute Lymphs (auto) 2.83, Nucleated RBC % 0, Sodium 141, Potassium 3.7, Chloride 105, Carbon Dioxide 24.0, Anion Gap 12, BUN 15, Creatinine 1.15, Estim Creat Clear Calc 53.74, Est GFR (MDRD) Non-Af 65, BUN/Creatinine Ratio 12.9, Glucose 192 H, Calcium 9.8, Total Bilirubin 0.56, Direct Bilirubin 0.22, AST 35, ALT 39, Alkaline Phosphatase 86, Troponin T High Sens 54 H*, Total Protein 7.1, Albumin 4.3, Globulin 2.8, Lipase 44 09/13/25 06:47: Troponin T Hi Sens 2 Hr 54 H* 09/13/25 10:44: Troponin T Hi Sens 4Hr 47 H Radiography Diagnostic Testing: Radiology Impression Chest/Abdomen/Pelvis CTA 09/13/25 05:40 IMPRESSION: Chronic deformities of the left ribs. Chronic deformities of the left pelvic bones. Mild diffuse irregularity of the hepatic contour, possibly chronic parenchymal liver disease. Mild hepatic steatosis. Mild periprostatic fat thickening, possibly prostatitis without drainable abscess. Fat containing right inguinal hernia without incarceration. Clip is noted in the left inguinal region. Moderate diffuse spondylosis. No CT evidence of pulmonary embolus or aortic dissection. [facility] E[facility] 09/13/25 07:31 Interpretation Summary The left ventricular ejection fraction is 55 %. Infero-Basal: Hypokinetic Mild eccentric left ventricular hypertrophy. The left atrium is mildly enlarged. Mild (1+) mitral valve insufficiency. Mild (1+) tricuspid valve insufficiency. Mild (1+) aortic valve insufficiency. Mild focal aortic valve calcification. Ordering Physician: Aman Griffin Performed By: Cricket Richardson RCS D/C Instructions Weight Bearing Status: Full weight bearing DC O2, CPAP, BIPAP Needs Home O2 Discharge instructions: No Meaningful Use Info Meaningful Use Meaningful Use Diagnoses (Choose all that apply): None applicable Discharge Plan Admission Admit Date/Time: 09/13/25 07:25 Primary Reason for Your Visit: Musculoskeletal chest pain Attending Provider: Aman Griffin Primary Care Provider: Anahi Nolasco Discharge Orders/Prescriptions Prescriptions: Continued metformin 500 MG tablet 1,000 mg PO DAILY metoprolol succinate [Toprol XL] 25 MG tablet extended release 24 hr 25 mg PO QDAY Rx Instructions: only takes 1/2 tab daily lisinopril 5 MG tablet 10 mg PO QDAY aspirin 81 MG tablet,chewable 81 mg PO .dailly Referrals / Follow Up: Anahi Nolasco MD [Primary Care Provider, Internal Medicine] - See Referral Note Referral Note: In 2 weeks Disposition Disposition (needs filled in before D/C Order can be placed): Home, Self Care Charges/Coding Visit Charges Inpatient E&M: 08294 Disch Hosp >30min
--- NOTE | 2025-09-13 15:44 | PHA.DC_ITS ---
Pharmacy [place] Med Reconciliation
--- NOTE | 2025-09-13 15:44 | PHA.DC.MR.R ---
Pharmacy [place] Med Reconciliation Pharmacy Service has performed discharge medication reconciliation for this patient. The patient's discharge medication list was reviewed for discrepancies and discrepancies were resolved. Medications at Discharge Home Medications metformin 500 mg tablet 1,000 mg PO DAILY DIABETIC 07/11/18 metoprolol succinate 25 mg tablet,extended release 24 hr (Toprol XL) 25 mg PO QDAY BP 07/11/18 lisinopril 5 mg tablet 10 mg PO QDAY BP 12/17/20 aspirin 81 mg chewable tablet 81 mg PO .jey 09/13/25
[2025-09-13 16:19] VITALS: BP 153/71; PULSE 48; RESP 17; O2SAT 97
--- NOTE | 2025-09-13 17:50 | PCM.HP.STD ---
HPI - General General Date of Admission: 09/13/25 Date of Service: 09/13/25 Chief Complaint: Chest pain HPI Narrative ASIM CARCAMO, is a 80 M who presents to the emergency room at [facility] with complaints of substernal chest pain which he described as grabbing in nature. Patient denied any shortness of breath, he denied any radiation of the discomfort into his neck or arm, he did state that the discomfort radiated toward his left mid chest area. Patient has a past history of coronary artery disease with stent placement, according to his significant other, he is noncompliant with taking medication at home. Workup in the emergency room included a troponin which was slightly elevated x 2, the result was the same-54 both times. Chemistry profile was unremarkable, CBC was unremarkable. Patient had a CTA of his chest abdomen pelvis that showed only chronic changes over his left rib area and pelvis. Patient's EKG showed no acute ischemic changes. Patient will be placed in observation status on PCU, a third set of troponin will be resulted, patient will undergo a nuclear stress test and an echocardiogram. [facility] Medical History Atherosclerosis of [place] coronary artery of [place] heart without angina pectoris Atrial fibrillation Diabetes mellitus History of left heart catheterization HLD (hyperlipidemia) HTN (hypertension) predatory animal exterminator use of drug Myocardial infarction Non-rheumatic tricuspid valve insufficiency Home Medications ?Medication ?Instructions ?Recorded ?Last Taken ?Type metformin 500 mg tablet 1,000 mg PO DAILY DIABETIC 07/11/18 Unknown History metoprolol succinate 25 mg 25 mg PO QDAY BP 07/11/18 07/23/18 07:00 History tablet,extended release 24 hr (Toprol XL) lisinopril 5 mg tablet 10 mg PO QDAY BP 12/17/20 Unknown History aspirin 81 mg chewable tablet 81 mg PO .dailly 09/13/25 Unknown History Allergy/AdvReac Type Severity Reaction Status Date / Time No Known Allergies Allergy Verified 10/19/21 14:19 Family History Father CVA (cerebral vascular accident) Mother Congestive heart failure Surgical History History of PTCA Hx of right coronary artery stent placement S/P wrist surgery Thoracotomy and thoracic aorta repair (~1979) Social History Smoking Status: Never smoker alcohol intake: former substance use type: does not use caffeine: Yes Type: coffee Number of servings: 2 what type of physical activity do you participate in: none seatbelt use: always do you feel safe at home: Yes ROS Constitutional Constitutional: Denies anorexia, change in weight, chills, fatigue, fever(s), malaise, night sweats or weakness Eyes Eyes: Denies blurry vision, change in vision, discharge from eye(s) or eye pain Cardiovascular Cardiovascular: Reports chest pain; Denies claudication, dyspnea on exertion, edema, lightheadedness or palpitations Respiratory/Chest Respiratory/Chest: Denies cough, dyspnea, hemoptysis, productive cough, shortness of breath at rest or shortness of breath with exertion Gastrointestinal Gastrointestinal: Denies abdominal pain, constipation, diarrhea, hematemesis, hematochezia, melena, nausea or vomiting Genitourinary Genitourinary: Denies dysuria, hematuria, urinary frequency, urinary hesitancy, urinary incontinence or urinary urgency Musculoskeletal Musculoskeletal: Denies back pain, joint pain, joint stiffness, joint swelling, myalgias or neck pain Neurologic Neurologic: Denies abnormal gait, abnormal speech, dizziness, focal weakness, headache(s), loss of vision, numbness, other visual disturbances, paresthesias, syncope or tingling Psychiatric Psychiatric: Denies anxiety, cognitive impairment, depression, irritability, mood swings or suicidal ideation Endocrine Endocrinology: Denies change in body appearance, cold intolerance, excessive sweating, heat intolerance, polydipsia or polyuria Hematologic/Lymphatic Hematologic/Lymphatic: Denies none, anemia, easy bleeding, easy bruising or lymphadenopathy Allergic/Immunologic Allergic/Immunologic: Denies rhinitis, urticaria, eczemia or asthma Vital Signs Vital Signs Vital Signs: 09/13/25 04:41 09/13/25 04:42 09/13/25 05:25 Temperature 97.7 F L Temperature Source Oral Pulse Rate 85 Respiratory Rate 16 Respiratory Effort Blood Pressure 207/97 H Blood Pressure Mean 133 Blood Pressure Source Blood Pressure Position Blood Pressure Location Pulse Ox 100 Oxygen Delivery Method Room Air Room Air 09/13/25 05:41 09/13/25 06:41 09/13/25 08:03 Temperature 97.7 F L Temperature Source Pulse Rate 50 L 50 L Respiratory Rate 15 15 Respiratory Effort Normal Non-Labored Blood Pressure 165/81 H 165/81 H Blood Pressure Mean 109 109 Blood Pressure Source Blood Pressure Position Blood Pressure Location Pulse Ox 99 99 Oxygen Delivery Method Room Air 09/13/25 10:38 09/13/25 14:04 09/13/25 16:19 Temperature 97.6 F L Temperature Source Oral Pulse Rate 50 L 48 L Respiratory Rate 17 17 Respiratory Effort Blood Pressure 161/84 H 153/71 H Blood Pressure Mean 109 98 Blood Pressure Source Monitor Monitor Blood Pressure Position Semi-Fowlers Sitting Blood Pressure Location Left Arm Left Arm Pulse Ox 100 97 Oxygen Delivery Method Room Air Room Air Room Air Weight Weight: 81.4 kg Body Mass Index (BMI) 28.0 Physical Exam Const alert, oriented x3, no apparent distress, average body habitus and healthy appearing General Appearance: cooperative, well kempt and well developed Orientation / Consciousness: awake, oriented to person, oriented to place and oriented to time HEENT normocephalic, head/scalp atraumatic, hearing grossly normal bilaterally and moist oral mucous membranes Eyes PERRL, EOMs intact bilaterally and conjunctivae normal Neck supple, no JVD, thyroid normal and no carotid bruits General: trachea midline Resp normal respiratory effort, no retractions, no use of accessory muscles and clear to auscultation bilaterally Auscultation: Negative for rales, rhonchi or wheezes Cardio regular rate, regular rhythm, S1 normal heart sound, S2 normal heart sound, no murmurs, no rub and no gallops GI normal to inspection, nondistended, normoactive bowel sounds, soft to palpation, non-tender and non-distended Extremity no clubbing, cyanosis or edema Skin no rashes or lesions noted General Skin Exam: no breakdown Neuro oriented x3, CN's II-XII intact bilaterally, no focal motor deficits and no sensory deficits noted Sensorium / Orientation: awake and alert Speech: speech normal Psych affect normal Results Lab / Micro Data 09/13/25 04:50 09/13/25 04:50 Labs: Laboratory Results - last 24 hr 09/13/25 04:50: WBC 10.2, RBC 4.58 L, Hgb 14.4, Hct 41.6, MCV 90.8, MCH 31.4, MCHC 34.6, RDW Std Deviation 40.8, RDW Coeff of [place] 12.5, Plt Count 187, MPV 11.1, Immature Gran % (Auto) 0.500, Neut % (Auto) 58.7, Lymph % (Auto) 27.7, [place] % (Auto) 9.9, Eos % (Auto) 2.5, Baso % (Auto) 0.7, Absolute Neuts (auto) 6.0, Absolute Lymphs (auto) 2.83, Nucleated RBC % 0, Sodium 141, Potassium 3.7, Chloride 105, Carbon Dioxide 24.0, Anion Gap 12, BUN 15, Creatinine 1.15, Estim Creat Clear Calc 53.74, Est GFR (MDRD) Non-Af 65, BUN/Creatinine Ratio 12.9, Glucose 192 H, Calcium 9.8, Total Bilirubin 0.56, Direct Bilirubin 0.22, AST 35, ALT 39, Alkaline Phosphatase 86, Troponin T High Sens 54 H*, Total Protein 7.1, Albumin 4.3, Globulin 2.8, Lipase 44 09/13/25 06:47: Troponin T Hi Sens 2 Hr 54 H* 09/13/25 10:44: Troponin T Hi Sens 4Hr 47 H Rhythm Strip Rhythm Strip: Sinus bradycardia Rate: 59 Ectopy: None Imaging Radiology Impression Chest/Abdomen/Pelvis CTA 09/13/25 05:40 IMPRESSION: Chronic deformities of the left ribs. Chronic deformities of the left pelvic bones. Mild diffuse irregularity of the hepatic contour, possibly chronic parenchymal liver disease. Mild hepatic steatosis. Mild periprostatic fat thickening, possibly prostatitis without drainable abscess. Fat containing right inguinal hernia without incarceration. Clip is noted in the left inguinal region. Moderate diffuse spondylosis. No CT evidence of pulmonary embolus or aortic dissection. Reading Location: [id number] Echocardiogram 09/13/25 07:31 Interpretation Summary The left ventricular ejection fraction is 55 %. Infero-Basal: Hypokinetic Mild eccentric left ventricular hypertrophy. The left atrium is mildly enlarged. Mild (1+) mitral valve insufficiency. Mild (1+) tricuspid valve insufficiency. Mild (1+) aortic valve insufficiency. Mild focal aortic valve calcification. Ordering Physician: Aman Griffin Performed By: Cricket Richardson RCS Assessment & Plan Assessment/Plan (1) Chest pain: PLAN: Plan 1. Chest pain-etiology unclear, patient will be placed in observation status on PCU, he will be monitored and a third set of troponin will be obtained. Patient will undergo a nuclear stress test as well as an echocardiogram. #2 essential hypertension #3 coronary artery disease by history #4 hyperlipidemia #5 noncompliance with home medications and medical care #6 type 2 diabetes Total clinical time spent by myself addressing the patient's medical issues, reviewing all of his data, and collaborating with patient's care team: 45 minutes Charges/Coding Visit Charges OBSV E&M: 88646 Observ/hosp same date L1
== END 2025-09-13 16:45 | disposition home or self-care (01) ==
LOC: ED 07:27 → PCU 07:57
PROVIDERS: Admitting Provider Internal Medicine; Emergency Provider Emergency Medicine; PCP Internal Medicine; Visit Provider Internal Medicine
DX: R07.89 Other chest pain (principal); E11.9 Type 2 diabetes mellitus without complications; I25.10 Atherosclerotic heart disease of native coronary artery without angina pectoris; I10 Essential (primary) hypertension; E78.5 Hyperlipidemia, unspecified; I25.2 Old myocardial infarction; Z79.84 Long term (current) use of oral hypoglycemic drugs; Z95.5 Presence of coronary angioplasty implant and graft; Z79.899 Other long term (current) drug therapy; Z79.82 Long term (current) use of aspirin; Z91.148 Patient's other noncompliance with medication regimen for other reason
CPT/HCPCS: 71275; 74174; 78452; 80048; 80076; 83690; 84484; 85025; 93005; 93017; 93306; 96374; 96375; 99221; 99285; A9500; Q9967; A4216; G0378; J2405; J2785